=== PATIENT | female | born 1975 | race American Indian/Alaskan Native ===

== ENCOUNTER 2017-04-13 13:50 | Emergency (ER) | payer BC ==
--- NOTE | 2017-04-13 14:20 | EDM.PDOC ---
ED HPI GENERAL MEDICAL PROBLEM - General Chief Complaint: Upper Extremity Injury/Pain Stated Complaint: L ARM INJURY Time Seen by Provider: 04/13/17 14:17 Source of Information: Reports: Patient - History of Present Illness INITIAL COMMENTS - FREE TEXT/NARRATIVE: Patient was sent here today by the mandatory clinic for evaluation of left shoulder pain. Patient states that pain started on Tuesday evening after work, patient does have a fairly physical job and lifts 30 pounds repeatedly for this. She had no specific injury, no impact or specific motion that caused her pain. Pain is located to her left shoulder and occasionally radiates down her left arm. She was given Hoffmeister at the clinic and states that this helps her pain temporarily. Patient has had no previous injury to the shoulder. Left Arm Pain Score (Numeric/FACES): 5 - Related Data Allergies Allergy/AdvReac Type Severity Reaction Status Date / Time amoxicillin Allergy Itching Verified 04/13/17 14:01 Home Meds: Home Meds Levothyroxine [Synthroid] 88 mcg PO ACBREAKFAST 04/13/17 [History] Naproxen [IMW: Naproxen] 500 mg PO BID #30 tab 04/13/17 [Rx] predniSONE [Prednisone] 20 mg PO BID #10 tablet 04/13/17 [Rx] Past Medical History HEENT History: Reports: Impaired Vision [employer] History: Reports: Psychiatric History: Reports: Depression Endocrine/Metabolic History: Reports: Hypothyroidism Hematologic History: Reports: Anemia Social & Family History - Tobacco Use Smoking Status *Q: Never Smoker Second Hand Smoke Exposure: Yes - Caffeine Use Caffeine Use: Reports: Coffee, Soda - Recreational Drug Use Recreational Drug Use: No Review of Systems - Review of Systems Review Of Systems: See Below Respiratory: Reports: No Symptoms Cardiovascular: Reports: No Symptoms Musculoskeletal: Reports: Shoulder Pain (left). Denies: Neck Pain, Arm Pain, Back Pain, Joint Swelling Skin: Reports: No Symptoms Neurological: Reports: No Symptoms Psychiatric: Reports: No Symptoms ED EXAM, GENERAL - Physical Exam Exam: See Below General Appearance: Alert, WD/WN, No Apparent Distress Respiratory/Chest: No Respiratory Distress, Lungs Clear Cardiovascular: Normal Peripheral Pulses, Regular Rate, Rhythm, No Murmur Extremities: Normal Inspection, Normal Capillary Refill, Other (Left shoulder without ecchymosis or obvious deformity. Patient has tenderness to the insertion of biceps tendon as well as shoulder joint.Patient has limited overall range of motion, she was able to extend only 80, able to a abduct to 70 but unable to hold it there. Significant pain with empty can test, unable to perform lift off test.). No: Arm Pain Neurological: Alert, Oriented Psychiatric: Normal Affect, Normal Mood Skin Exam: Warm, Dry, Intact Course - Vital Signs Last Recorded V/S: Last Vital Signs Temp 96.8 F 04/13/17 13:57 Pulse 77 04/13/17 13:57 Resp 18 04/13/17 13:57 BP 138/93 H 04/13/17 13:57 Pulse Ox 100 04/13/17 13:57 - Re-Assessments/Exams Free Text/Narrative Re-Assessment/Exam: No specific injury to cause patient's shoulder pain. I do suspect that there is at least a partial rotator cuff tear. At this point will treat patient with Medrol Dosepak and anti-inflammatories, she does have Hoffmeister that was prescribed by her PCP. Will also give her an order to start physical therapy. If patient's pain is not significantly improved over the next 1-2 weeks with this then she is to contact her PCP and may need to go may need to order an MRI on an outpatient basis and consider referral to orthopedics. 04/13/17 15:05 Departure - Departure Time of Disposition: 15:07 Disposition: Home, Self-Care 01 Condition: Good Clinical Impression: Shoulder pain, left Qualifiers: Chronicity: acute Qualified Code(s): M25.512 - Pain in left shoulder - Discharge Information Referrals: PCP,Not In Area [Primary Care Provider] - Forms: ED Department Discharge, ED Return to Work/School Form Additional Instructions: You have been evaluated in the emergency room for shoulder pain. I do suspect that you have at least a partial rotator cuff tear. You have been prescribed a steroid to decrease the inflammatory response as well as an anti-inflammatory. Ice this 15 minutes for every 2-3 hours as needed for pain as well. Wear your shoulder sling during the day, taking her arm out of this at least 2- 3 times per day and do the exercises that were demonstrated to you. Start physical therapy. If not having significant improvement in your pain with physical therapy then you need to follow up with her primary provider who may need to order an MRI.
[2017-04-13] MEDS ORDERED: Acetaminophen/HYDROcodone 325-10 MG Tab PO ONE (15:19)
== END 2017-04-13 15:35 | disposition home or self-care (01) ==
LOC: JD.ED 13:50
DX: M25.512 Pain in left shoulder (principal); Z88.1 Allergy status to other antibiotic agents
CPT/HCPCS: 99283; A9270